=== PATIENT | male | born 2000 | race Caucasian/White ===

== ENCOUNTER 2019-10-03 00:41 | Emergency (ER) | payer OTHER ==
[2019-10-03 00:47] VITALS: BP 107/57
--- NOTE | 2019-10-03 00:56 | ED ---
Lower Extremity - HPI Summary HPI Summary: 19-year-old male with no significant Past medical history presents to emergency department today complaining of left knee pain. Patient states approximately one hour ago "my knee dislocated and I could see the bone sticking out of the side." Patient states this happened when a friend of his went to hug him And hit the lateral aspect of his left knee. Patient endorsed 10 out of 10 knee pain when this happened. Patient states when he was getting into the vehicle to come to the emergency department his knee "popped back in". Patient currently endorses for 10 pain and is neurovascularly intact. Patient has no other complaints and denies fever, chest pain, abdominal pain, pain with urination, rash. There is no obvious deformity, ecchymosis or erythema. Surgical history family history is noncontributory. - History of Current Complaint Chief Complaint: EDExtremityLower Stated Complaint: LEFT KNEE PAIN Time Seen by Provider: 10/03/19 00:55 Hx Obtained From: Patient Mechanism Of Injury: Twisted Onset of Pain: Immediate Onset/Duration: Hours Severity Initially: Severe Severity Currently: Moderate Pain Intensity: 6 Pain Scale Used: 0-10 Numeric Timing: Lasting Minutes Character Of Pain: Aching Associated Signs And Symptoms: Negative: Swelling, Redness, Bruising, Fever Alleviating Factor(s): Rest - Allergies/Home Medications Allergies/Adverse Reactions: Allergies Allergy/AdvReac Type Severity Reaction Status Date / Time Penicillins Allergy Swelling Verified 06/19/18 18:31 Of Face,Lips,& Throat PMH/Surg Hx/FS Hx/Imm Hx - Immunization History Date of Influenza Vaccine: 05/2019 Infectious Disease History: No Infectious Disease History: Denies: Traveled Outside the [place] in Last 30 Days - Family History Known Family History: Positive: Unknown - Pt is adopted - Social History Alcohol Use: Weekly Alcohol Amount: saturdays Substance Use Type: Reports: Marijuana Substance Use Comment - Amount & Last Used: rare Smoking Status (MU): Never Smoked Tobacco Review of Systems Constitutional: Negative Eyes: Negative ENT: Negative Cardiovascular: Negative Respiratory: Negative Gastrointestinal: Negative Genitourinary: Negative Positive: Arthralgia Skin: Negative Neurological: Negative Psychological: Normal All Other Systems Reviewed And Are Negative: Yes Physical Exam - Summary Physical Exam Summary: Patient is in no acute distress. There is no obvious deformity of the left knee. Patient has 2+ dorsalis pedis pulses bilaterally. There is no ecchymosis or erythema. Patient has full range of motion of the knee bilaterally. Negative straight leg raise. Triage Information Reviewed: Yes Vital Signs On Initial Exam: Initial Vitals Temp Pulse Resp BP Pulse Ox 97.3 F 90 18 107/57 100 10/03/19 00:42 10/03/19 00:42 10/03/19 00:42 10/03/19 00:42 10/03/19 00:42 Vital Signs Reviewed: Yes Appearance: Positive: Well-Appearing, No Pain Distress, Well-Nourished Skin: Positive: Warm, Skin Color Reflects Adequate Perfusion Eyes: Positive: EOMI, ESTEE ENT: Positive: Hearing grossly normal Respiratory/Lung Sounds: Positive: Clear to Auscultation, Breath Sounds Present Cardiovascular: Positive: RRR, S1, S2 Abdomen Description: Positive: Nontender, Soft. Negative: Distended, Guarding Bowel Sounds: Positive: Present Musculoskeletal: Positive: Strength/ROM Intact Neurological: Positive: Sensory/Motor Intact, Alert, Oriented to Person Place, Time, Normal Gait, Facial Symmetry, Speech Normal Psychiatric: Positive: Normal, Affect/Mood Appropriate AVPU Assessment: Alert Procedures - Sedation Patient Received Moderate/Deep Sedation with Procedure: No Diagnostics - Vital Signs Vital Signs Temp Pulse Resp BP Pulse Ox 10/03/19 00:42 97.3 F 90 18 107/57 100 - Laboratory Lab Statement: Any lab studies that have been ordered have been reviewed, and results considered in the medical decision making process. Lower Extremity Course/Dx - Course Course Of Treatment: Patient evaluated in the emergency department today for left knee pain. Patient examined vitals noted. Patient's story and physical exam is consistent with a resolved patellar dislocation. X-ray was done which showed no evidence of fracture. Patient given knee immobilizer and discharged with outpatient follow-up with orthopedics. Patient told to practice R.I.C.E therapy and to wear knee immobilizer until seen by orthopedics. - Diagnoses Differential Diagnosis/HQI/PQRI: Positive: Arthritis, Contusion, Dislocation, Fracture (Closed), Sprain, Strain, Tendonitis Provider Diagnoses: Patellar dislocation Discharge ED - Sign-Out/Discharge Documenting (check all that apply): Patient Departure - Discharge Plan Condition: Stable Disposition: HOME Patient Education Materials: Patellar Dislocation (ED) Referrals: Etienne Szymanski MD [Medical Doctor] - 3 Days [facility] - Tay JACOBO [Primary Care Provider] - 3 Days Additional Instructions: You were seen in the emergency department today due to knee pain caused by a patellar dislocation. your patella appears to be back to its normal position however residual pain is common. Please take ibuprofen 600 mg every 6 hours as needed for pain. You were given a knee immobilizer in the emergency department. Please keep this on until you're seen by orthopedics as you're patellar ligaments are weak and dislocation may reoccur. Please follow-up with orthopedics in 3-5 days for further evaluation and management. You may apply ice to the area for alleviation of symptoms. Please return to the emergency department immediately if you develop any new or worsening symptoms. - Billing Disposition and Condition Condition: STABLE Disposition: Home
== END 2019-10-03 01:47 | disposition home or self-care (01) ==
LOC: ED 00:41
DX: S83.005A Unspecified dislocation of left patella, initial encounter (principal); X58.XXXA Exposure to other specified factors, initial encounter; Y92.9 Unspecified place or not applicable; Z88.0 Allergy status to penicillin
CPT/HCPCS: 99282